=== PATIENT | female | born 2000 | race Caucasian/White ===

== ENCOUNTER → 2018-03-15 15:15 | Outpatient (CLI) | payer BC, SELFPAY | PROVIDERS: Family Provider Pediatrics; PCP Pediatrics; Referring Provider Otolaryngology; Visit Provider Otolaryngology | DX: J02.9 Acute pharyngitis, unspecified (principal) | CPT/HCPCS: 87070; 87077 ==

== ENCOUNTER → 2018-06-08 14:59 | Outpatient (CLI) | payer BC, SELFPAY ==
[2018-06-08 16:06] LABS: Free T3 2.6 pg/mL (2.18-3.98); T4 Free Direct 1.16 ng/dL (0.76-1.46)
[2018-06-08 16:07] LABS: Progesterone Level 0.98 ng/mL (See Comment)
[2018-06-08 16:16] LABS: Hemoglobin A1c 5.5 % (4.2-6.3)
== END ==
PROVIDERS: Family Provider Pediatrics; PCP Pediatrics; Visit Provider Obstetrics & Gynecology
DX: N92.6 Irregular menstruation, unspecified (principal); R10.2 Pelvic and perineal pain
CPT/HCPCS: 36415; 82670; 83036; 84144; 84403; 84439; 84443; 84481

== ENCOUNTER → 2019-04-16 | Outpatient (CLI) | payer BC, SELFPAY | END | disposition home or self-care (01) | PROVIDERS: Visit Provider Obstetrics & Gynecology | DX: Z12.4 Encounter for screening for malignant neoplasm of cervix (principal) ==

== ENCOUNTER → 2019-08-12 | Outpatient (CLI) | payer BC, SELFPAY ==
[2019-08-12 20:12] LABS: Chlamydia Trachomatis by PCR Negative (Negative); Neisserai gonorrhoeae by PCR Negative (Negative); Probe Check PASS; Sample Adequacy Control PASS; Specimen Processing Control PASS
== END | disposition home or self-care (01) ==
PROVIDERS: Visit Provider Obstetrics & Gynecology
DX: Z11.3 Encounter for screening for infections with a predominantly sexual mode of transmission (principal)
CPT/HCPCS: 87491; 87591